=== PATIENT | male | born 1965 | race Caucasian/White ===

== ENCOUNTER 2020-03-02 11:59 | Emergency (ER) | payer BC ==
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
[2020-03-02 13:13] VITALS: BP 179/86; PULSE 89; RESP 18; TEMP 97.8
== END 2020-03-02 13:10 | disposition home or self-care (01) ==
LOC: EC 11:59
DX: S66.919A Strain of unspecified muscle, fascia and tendon at wrist and hand level, unspecified hand, initial encounter (principal); E11.9 Type 2 diabetes mellitus without complications; Z79.84 Long term (current) use of oral hypoglycemic drugs; V89.2XXA Person injured in unspecified motor-vehicle accident, traffic, initial encounter; Y92.410 Unspecified street and highway as the place of occurrence of the external cause
CPT/HCPCS: 99284

== ENCOUNTER 2021-01-29 18:28 | Emergency (ER) | payer BC, OTHER ==
[2021-01-29 18:37] VITALS: BP 157/92; PULSE 97; RESP 18; TEMP 98
--- NOTE | 2021-01-29 19:50 | ED ---
General Adult HPI - General Chief complaint: Extremity Problem,Nontraumatic Stated complaint: Leg pain Time Seen by Provider: 01/29/21 18:35 Source: patient, RN notes reviewed, old records reviewed Mode of arrival: ambulatory Limitations: no limitations - History of Present Illness Initial comments: This is a 55-year-old male who presents emergency Department complaining of a area on the back of his right thigh that is purple and tender to palpation. Patient states he noticed that the other work today and someone told him it might be a class when he come to the emergency department. Patient has no swelling of the lower leg patient has no Tenderness. Patient is not any blood thinners. Patient denies any difficulty breathing shortest breath. - Related Data Home Medications Medication Instructions Recorded Confirmed metFORMIN HCL [Glucophage] 500 mg PO BID 10/18/14 10/18/14 Previous Rx's Medication Instructions Recorded Clindamycin [Cleocin] 450 mg PO Q6H #30 capsule 10/18/14 Allergies Allergy/AdvReac Type Severity Reaction Status Date / Time No Known Allergies Allergy Verified 01/29/21 18:37 Review of Systems ROS Statement: Those systems with pertinent positive or pertinent negative responses have been documented in the HPI. ROS Other: All systems not noted in ROS Statement are negative. Past Medical History Past Medical History: Diabetes Mellitus History of Any Multi-Drug Resistant Organisms: None Reported Past Surgical History: Orthopedic Surgery Additional Past Surgical History / Comment(s): knee toe surg Past Psychological History: No Psychological Hx Reported Smoking Status: Never smoker Past Alcohol Use History: None Reported Past Drug Use History: None Reported General Exam - General Exam Comments Initial Comments: GENERAL Patient is well-developed and well-nourished. Patient is in mild distress. EYES Patient's pupils are equal and round. Extraocular motion is intact SKIN Hematoma right thigh NEURO The patient is alert and oriented 3 PYSCH Patient has normal interpersonal interactions. MUSCULOSKELETAL Patient has a small hematoma the posterior aspect of the right thigh there is no calf tenderness is no swelling of the leg. The hematoma measures about 2 cm in diameter. It is superficial. Limitations: no limitations Course Vital Signs 01/29/21 18:34 Temperature 98.0 F Pulse Rate 97 Respiratory 18 Rate Blood Pressure 157/92 O2 Sat by Pulse 97 Oximetry Disposition Clinical Impression: Hematoma of thigh Disposition: HOME SELF-CARE Condition: Good Instructions (If sedation given, give patient instructions): Hematoma (ED) Is patient prescribed a controlled substance at d/c from ED?: No Referrals: Danielle Ca III, MD [Primary Care Provider] - 1-2 days Time of Disposition: 19:50
== END 2021-01-29 20:02 | disposition home or self-care (01) ==
LOC: EC 18:28
DX: S70.11XA Contusion of right thigh, initial encounter (principal); E11.9 Type 2 diabetes mellitus without complications; Z79.84 Long term (current) use of oral hypoglycemic drugs; X58.XXXA Exposure to other specified factors, initial encounter
CPT/HCPCS: 99283

== ENCOUNTER → 2021-07-16 | Outpatient (CLI) | payer BC ==
--- NOTE | 2021-07-16 18:35 | P.STRESS ---
- Stress Test Note Stress Test Results/Findings: Exam Performed: stress test Exam Date: 07/16/21 Reason for Exam: CHEST PAIN Height: 6 ft Weight: 93.2 kg Protocol: REBECA Stage: 3 Duration of Exercise: 8:00 Resting Heart Rate: 103 Resting Blood Pressure: 154/93 Maximum Achieved Heart Rate: 169 Maximum Achieved Blood Pressure: 188/117 85% PMHR: 139 100% PMHR: 164 METS: 10.3 Technologist Comment: Stress Test Results/Findings: Baseline heart rate 130 beats a minute, Baseline blood pressure 154/93 mmHg Twelve-lead EKG showed sinus rhythm normal OR narrow QRS normal ST segments poor R-wave progression Patient exercised on a Rebeca protocol for 8 minutes achieving a peak heart rate of 169 beats a minute Peak blood pressure 188 417 beats a minute Occasional PVCs noted No symptoms noted There were no ST segment abnormalities suggestive of ischemia Impression Average exercise capacity without any evidence for ischemia Hypertension
--- NOTE | 2021-07-18 10:09 | EST ---
Stress Test Results/Findings: Exam Performed: stress test Exam Date: 07/16/21 Reason for Exam: CHEST PAIN Height: 6 ft Weight: 93.2 kg Protocol: REBECA Stage: 3 Duration of Exercise: 8:00 Resting Heart Rate: 103 Resting Blood Pressure: 154/93 Maximum Achieved Heart Rate: 169 Maximum Achieved Blood Pressure: 188/117 85% PMHR: 139 100% PMHR: 164 METS: 10.3 Technologist Comment: Stress Test Results/Findings: Baseline heart rate 130 beats a minute, Baseline blood pressure 154/93 mmHg Twelve-lead EKG showed sinus rhythm normal VA narrow QRS normal ST segments poor R-wave progression Patient exercised on a Rebeca protocol for 8 minutes achieving a peak heart rate of 169 beats a minute Peak blood pressure 188 417 beats a minute Occasional PVCs noted No symptoms noted There were no ST segment abnormalities suggestive of ischemia Impression Average exercise capacity without any evidence for ischemia Hypertension MTDD
== END | disposition home or self-care (01) ==
LOC: RADNMMAIN 08:24
PROVIDERS: ATTEND Family Medicine
DX: R07.9 Chest pain, unspecified (principal)
CPT/HCPCS: 93017

== ENCOUNTER → 2022-01-10 | Outpatient (CLI) | payer BC ==
--- NOTE | 2022-01-10 07:41 | US ---
EXAMINATION TYPE: US abdomen complete DATE OF EXAM: 01/10/2022 COMPARISON: NONE CLINICAL HISTORY: R10.11 RUQ PAIN. Patient states pain after drinking. TECHNIQUE: Multiple sonographic images of the abdomen are obtained. FINDINGS: EXAM MEASUREMENTS: Liver Length: 16.2 cm Gallbladder Wall: 0.2 cm CBD: 0.4 cm Spleen: 12.6 cm Right Kidney: 12.1 x 5.2 x 5.4 cm Left Kidney: 12.8 x 4.7 x 5.0 cm Pancreas: Echogenic in appearance. Tail obscured by bowel gas. Liver: Increased attenuation, decreased visualization of vessels suggestive of fatty infiltrate. Fo steffen fatty sparing seen adjacent to GB. Gallbladder: Mobile stone = 0.9 cm Evidence for sonographic Mancilla's sign: neg CBD: wnl Spleen: wnl Right Kidney: No hydronephrosis or masses seen Left Kidney: medial anechoic lesion at hilum - 2.1 x 1.3 cm Upper IVC: Obscured by overlying bowel gas Abd Aorta: Proximal obscured by overlying bowel gas Multiple images taken of RUQ post drinking water The intrahepatic portion of the IVC and proximal abdominal aorta are within normal limits. Common bi le duct is unremarkable. The visualized portions of the pancreas are homogenous. The spleen is unre markable. Kidneys are symmetric and free of hydronephrosis. No solid renal lesions are seen. IMPRESSION: 1. Hepatic steatosis with areas of focal fatty sparing. 2. Cholelithiasis. 3. Left renal cyst.
== END | disposition home or self-care (01) ==
LOC: RADUSWWP 06:40
PROVIDERS: ATTEND Family Medicine
DX: K76.0 Fatty (change of) liver, not elsewhere classified (principal); K80.20 Calculus of gallbladder without cholecystitis without obstruction; N28.1 Cyst of kidney, acquired
CPT/HCPCS: 76700

== ENCOUNTER 2022-09-19 09:12 | Day surgery (SDC) | payer BC ==
[2022-09-16 12:57] VITALS: BMI 27.8
[~2022-09-19 09:12] MED LIST: ACETAMINOPHEN TAB 500 MG TAB PO PRN; DEXAMETHASONE SOD PHOSPHATE 4 MG/ML 1 ML VIAL IV ONE; HEPARIN SODIUM,PORCINE/PF 5,000 UNIT/0.5 ML SYRINGE SQ PRN; HYDROmorphone 0.5 MG/0.5 ML SYRINGE IVP PRN; LACTATED RINGERS 1,000 ML IV SCH; MIDAZOLAM 2 MG/2 ML VIAL IV PRN; ONDANSETRON 4 MG/2 ML VIAL IVP ONE; SCOPOLAMINE 1 MG/72 HR PATCH TRANSDERM ONE
[2022-09-19 09:48] LABS: Glucose,Whole Blood 142 mg/dL (70-110)
--- NOTE | 2022-09-19 10:21 | P.GSHP ---
History of Present Illness H&P Date: 09/19/22 Chief Complaint: Chronic cholecystitis 57-year-old male last seen in the office February last year. Patient with complaints of intermittent right upper quadrant pain. Usually happens about twice per week. Aggravated by eating certain foods. Some nausea at times. Ultrasound shows gallstones. Past Medical History Past Medical History: Diabetes Mellitus, Hyperlipidemia, Hypertension Additional Past Medical History / Comment(s): GALL BLADDER DISORDER History of Any Multi-Drug Resistant Organisms: None Reported Past Surgical History: Orthopedic Surgery Additional Past Surgical History / Comment(s): RTknee AND LT toe surg. COLONOSCOPY Past Anesthesia/Blood Transfusion Reactions: No Reported Reaction Smoking Status: Never smoker - Past Family History Mother Family Medical History: No Reported History Medications and Allergies Home Medications Medication Instructions Recorded Confirmed Type metFORMIN HCL [Glucophage] 500 mg PO BID 10/18/14 09/16/22 History Dulaglutide [Trulicity] 4.5 mg SQ MO 09/16/22 09/16/22 History Empagliflozin [Jardiance] 25 mg PO DAILY 09/16/22 09/16/22 History Glimepiride [Amaryl] 2 mg PO AC-BRKFST 09/16/22 09/16/22 History Simvastatin 40 mg PO DAILY 09/16/22 09/16/22 History lisinopriL [Zestril] 10 mg PO DAILY 09/16/22 09/19/22 History Allergies Allergy/AdvReac Type Severity Reaction Status Date / Time No Known Allergies Allergy Verified 09/19/22 10:00 Surgical - Exam Physical exam: General: Well-developed, well-nourished HEENT: Normocephalic, sclerae nonicteric Abdomen: Nontender, nondistended Extremities: No edema Neuro: Alert and oriented Results - Labs Abnormal Lab Results - Last 24 Hours (Table) 09/19/22 Range/Units 09:47 POC Glucose (mg/dL) 142 H (70-110) mg/dL Assessment and Plan (1) Chronic cholecystitis Narrative/Plan: 57-year-old male with chronic cholecystitis. We'll proceed with laparoscopic, possible open cholecystectomy at this time. Risks of bleeding, infection, bile leak, bile duct injury, retained common bile duct stone, trocar injury, conversion to an open procedure, hernia, anesthesia related complications were reviewed. The patient understands and wishes to proceed. Current Visit: Yes Status: Acute Code(s): K81.1 - CHRONIC CHOLECYSTITIS SNOMED Code(s): 79277847
[2022-09-19] MEDS ORDERED: KETOROLAC 15 MG/ML 1 ML VIAL ONE (10:28)
[2022-09-19] MEDS ORDERED: MIDAZOLAM 2 MG/2 ML VIAL ONE (10:28)
[2022-09-19] MEDS ORDERED: LIDOCAINE 2% INJ 20 MG/ML (2 ML VIAL) ONE (10:28)
[2022-09-19] MEDS ORDERED: HYDROmorphone (PF) 1 MG/ML ONE (10:28)
[2022-09-19] MEDS ORDERED: GLYCOPYRROLATE 0.2 MG/ML 2 ML VIAL ONE (10:28)
[2022-09-19] MEDS ORDERED: SUCCINYLCHOLINE CHLORIDE 200 MG/10 ML VIAL IV ONE (10:28)
[2022-09-19] MEDS ORDERED: PROPOFOL 10 MG/ML 20 ML VIAL IV ONE (10:28)
[2022-09-19] MEDS ORDERED: fentaNYL (PF) 50 MCG/ML 2 ML AMP ONE (10:28)
[2022-09-19] MEDS ORDERED: NEOSTIGMINE 1 MG/ML 10 ML VIAL ONE (10:28)
[2022-09-19] MEDS ORDERED: PHENYLEPHRINE-0.9% NACL SYG 1,000 MCG/10 ML SYRINGE ONE (10:28)
[2022-09-19] MEDS ORDERED: ROCURONIUM 10 MG/ML (5 ML VIAL) IV ONE (10:28)
[2022-09-19] MEDS ORDERED: BUPIVACAINE (PF) 0.25% 30 ML VIAL SQ ONE ×3 (11:00→11:43)
[2022-09-19] MEDS ORDERED: LACTATED RINGERS 1,000 ML IV ONE (11:43)
[2022-09-19 11:57] VITALS: TEMP 97.1
--- NOTE | 2022-09-19 12:12 | P.OP ---
Date of Procedure: 09/19/22 Procedure(s) Performed: PREOPERATIVE DIAGNOSIS: Chronic cholecystitis POSTOPERATIVE DIAGNOSIS: Same PROCEDURE: Laparoscopic cholecystectomy SURGEON: Chester EBL: Minimal see anesthesia record ANESTHESIA: Gen. COMPLICATIONS: None OPERATIVE PROCEDURE: The patient was brought and placed on the operating room table in the supine position. The patient was placed under general anesthesia at that time. The abdomen was prepped and draped in the usual sterile fashion. A small vertical infraumbilical incision was made. The fascia was grasped with the [place] forceps. The fascia was retracted anteriorly. The Veress needle was advanced into the peritoneal cavity. The saline drop test was normal. Insufflation took place up to 15 mmHg. A 5 mm optical trocar was advanced and the peritoneal cavity. 2 additional 5 mm trochars were placed in the right upper quadrant under direct visualization. A 12 mm trocar was advanced into the epigastric incision site. The gallbladder was retracted superiorly and laterally. The peritoneum overlying the infundibulum was bluntly dissected. The patient's cystic duct was visualized. The junction between the cystic duct common and hepatic duct was identified. The critical view of safety was achieved after blunt dissection. The cystic duct was then divided after placement of 3 12 mm clips on the patient's side and one on the specimen side. The cystic artery was identified and clipped as well. A small vessel was seen along the gallbladder fossa and clipped as well. The gallbladder was then removed from the liver bed using electrocautery. The gallbladder was then removed from the epigastric trocar site with an Endo Catch bag. The gallbladder fossa was irrigated with saline. There was no evidence of any bleeding or biliary drainage seen. The fascia at the 12 millimeter site was closed using a Jim-Qing 0 Vicryl stitch. The trochars were then removed. The skin at all 4 sites was closed using a 4-0 Monocryl stitch. Skin glue was utilized on the incision sites. At the end of this procedure the sponge and needle counts were correct. DISPOSITION: Stable to the recovery room
[2022-09-19] MEDS ORDERED: ACETAMINOPHEN TAB 325 MG TAB PO SCH (12:15)
[2022-09-19 13:23] VITALS: RESP 18
[2022-09-19 13:51] VITALS: BP 116/71; PULSE 93
[2022-09-19] MEDS ORDERED: IBUPROFEN 600 MG TAB PO SCH (15:15)
== END 2022-09-19 14:48 | disposition home or self-care (01) ==
LOC: OR 09:12
PROVIDERS: ATTEND Surgery
DX: K81.1 Chronic cholecystitis (principal); E11.9 Type 2 diabetes mellitus without complications; E78.5 Hyperlipidemia, unspecified; I10 Essential (primary) hypertension; Z98.890 Other specified postprocedural states; Z79.84 Long term (current) use of oral hypoglycemic drugs; Z79.899 Other long term (current) drug therapy
CPT/HCPCS: 47562; J2250; J0330; J1100; J2710; J0690; J2405; J3010; J1170; J1885; J2370; J2704; J1644; J2001; 88304

== ENCOUNTER 2023-08-31 10:17 | Day surgery (SDC) | payer BC ==
[2023-08-28 12:44] VITALS: BMI 27.5
[2023-08-31] MEDS: LACTATED RINGERS 1,000 ML IV SCH (11:01)
[2023-08-31 11:07] LABS: Glucose,Whole Blood 156 mg/dL (70-110)
[2023-08-31 11:34] VITALS: TEMP 97.7
[2023-08-31] MEDS ORDERED: PROPOFOL 10 MG/ML 20 ML VIAL IV ONE (12:02)
--- NOTE | 2023-08-31 12:08 | P.GSHP ---
History of Present Illness H&P Date: 08/31/23 Chief Complaint: screening colonoscopy 58-year-old male presents today for screening colonoscopy.patient denies a significant ccomplaints. Past Medical History Past Medical History: Diabetes Mellitus, Hyperlipidemia, Hypertension Additional Past Medical History / Comment(s): GALL BLADDER DISORDER History of Any Multi-Drug Resistant Organisms: None Reported Past Surgical History: Cholecystectomy, Orthopedic Surgery Additional Past Surgical History / Comment(s): RT knee AND LT toe surg. COLONOSCOPY Past Anesthesia/Blood Transfusion Reactions: No Reported Reaction Smoking Status: Never smoker - Past Family History Mother Family Medical History: No Reported History Medications and Allergies Home Medications Medication Instructions Recorded Confirmed Type metFORMIN HCL [Glucophage] 500 mg PO BID 10/18/14 08/28/23 History Empagliflozin [Jardiance] 25 mg PO DAILY 09/16/22 08/28/23 History Glimepiride [Amaryl] 2 mg PO AC-BRKFST 09/16/22 08/28/23 History Simvastatin 40 mg PO DAILY 09/16/22 08/28/23 History lisinopriL [Zestril] 10 mg PO DAILY 09/16/22 08/28/23 History Tirzepatide [Mounjaro] 2.5 mg SQ MO 08/28/23 08/28/23 History Allergies Allergy/AdvReac Type Severity Reaction Status Date / Time No Known Allergies Allergy Verified 08/31/23 10:56 Surgical - Exam Vital Signs Temp Pulse Resp BP Pulse Ox 97.7 F 98 16 164/81 98 08/31/23 10:56 08/31/23 10:56 08/31/23 10:56 08/31/23 10:56 08/31/23 10:56 - General well developed, well nourished, no distress - Eyes PERRL - ENT normal pinna - Neck no masses - Respiratory normal expansion - Cardiovascular Rhythm: regular - Abdomen Abdomen: soft, non tender Results - Labs Abnormal Lab Results - Last 24 Hours (Table) 08/31/23 Range/Units 11:06 POC Glucose (mg/dL) 156 H (70-110) mg/dL Assessment and Plan Assessment: we'll perform screening colonoscopy
--- NOTE | 2023-08-31 12:19 | P.OP ---
Date of Procedure: 08/31/23 Preoperative Diagnosis: screening colonoscopy Postoperative Diagnosis: internal hemorrhoids Mild diverticulosis Procedure(s) Performed: colonoscopy Anesthesia: MAC Surgeon: Valerio Quinonez Pathology: none sent Condition: stable Disposition: PACU Description of Procedure: the patient's placed on the endoscopy table in the lateral position. He received IV sedation. Digital rectal exam was performed. This revealed a few internal hemorrhoids. Flexible colonoscope was then placed patient anus passed throughout the entire colon. The ileocecal valve was visualized. The cecum, ascending and transverse colon appeared normal. In the descending and; there is mild diverticular changes. The scope was then brought back the rectum and this appeared normal. Scope withdrawn for patient.
[2023-08-31 13:05] VITALS: BP 93/60; PULSE 87; RESP 16
== END 2023-08-31 12:50 | disposition home or self-care (01) ==
LOC: ORWHC2ENDO 10:17
PROVIDERS: ATTEND Surgery
DX: Z12.11 Encounter for screening for malignant neoplasm of colon (principal); K57.30 Diverticulosis of large intestine without perforation or abscess without bleeding; K64.8 Other hemorrhoids; I10 Essential (primary) hypertension; E78.5 Hyperlipidemia, unspecified; E11.9 Type 2 diabetes mellitus without complications; Z90.49 Acquired absence of other specified parts of digestive tract; Z98.890 Other specified postprocedural states; Z79.84 Long term (current) use of oral hypoglycemic drugs; Z79.899 Other long term (current) drug therapy
CPT/HCPCS: 45378; J2704

== ENCOUNTER → 2023-09-17 | Outpatient (CLI) | payer BC ==
[2023-09-17 09:21] LABS: African American GFR (CKD) >90 (>60 ml/min/1.73 sqM); Blood Urea Nitrogen 17 mg/dL (9-20); Non-African American GFR(CKD) >90 (>60 ml/min/1.73 sqM)
--- NOTE | 2023-09-17 12:56 | CT ---
EXAMINATION TYPE: CT soft tissue neck w con DATE OF EXAM: 09/17/2023 COMPARISON: None HISTORY: 58-year-old male Left sided swelling/lump. TECHNIQUE: Contiguous axial scanning of the soft tissues of the neck performed with IV Contrast, luis manuel ent injected with 100ml mL of Isovue 300. Coronal and sagittal reconstructions performed. CT DLP: 563 mGycm Automated exposure control for dose reduction was used. FINDINGS: The thyroid gland is satisfactory. The submandibular glands slightly atrophic. Parotid gland satisfactory. Visualized intracranial structures, orbits and globes, and mastoid air cells appear clear. Leftward nasal septal deviation. Scattered moderate mucosal thickening ethmoid air cells. Mild mucosa l thickening floors of the maxillary sinuses. Nasopharynx is clear. Mild to moderate hypertrophy of the bilateral palatine tonsils and mild hypertrophy of the bilateral lingual tonsils. Oropharynx otherwise clear. Epiglottis and prevertebral soft tissues are satisfactory. Glottic and subglottic airway as well as the tracheal column and visualized upper lungs are clear. Some prominent submandibular space lymph nodes measuring up to 1.3 cm on both sides, slightly more nu merous on the left. A prominent left upper to mid neck lymph node along the posterior triangle measur ing 1 cm. The palpable markers located overlying the left sternocleidomastoid muscle. No suspicious underlying neck mass is identified here. Bones: Mild to moderate degenerative disc disease C5-C7 levels. IMPRESSION: 1. PALPABLE MARKER PLACED ALONG THE LATERAL ASPECT OF THE UPPER TO MID NECK. NO SUSPICIOUS UNDERLYING NECK MASS IDENTIFIED. 2. BORDERLINE TO MILDLY ENLARGED LYMPH NODES IN THE BILATERAL SUBMANDIBULAR SPACE MEASURING UP TO 1.3 CM, PROBABLY REACTIVE/POST INFLAMMATORY. ADDITIONAL SOLITARY PROMINENT 1 CM LYMPH NODE ALONG THE LEF T POSTERIOR TRIANGLE OF THE NECK. CLINICAL FOLLOW-UP RECOMMENDED. ALSO, 3-[address] MON[address] FOLLOW-UP CT TO ENS URE STABILITY/RESOLUTION. 3. SCATTERED MODERATE CHRONIC ETHMOID SINUS DISEASE.
== END | disposition home or self-care (01) ==
LOC: RADCTMAIN 07:36
PROVIDERS: ATTEND Family Medicine
DX: J34.89 Other specified disorders of nose and nasal sinuses (principal); R22.1 Localized swelling, mass and lump, neck
CPT/HCPCS: 82565; 84520; 70491; 36415; Q9967

== ENCOUNTER 2023-10-31 21:47 | Observation (INO) | payer BC ==
--- NOTE | 2023-10-31 22:06 | ED ---
Weakness HPI - General Chief complaint: Weakness Stated complaint: Back and Left Shoulder Pain, Fatigue Time Seen by Provider: 10/31/23 21:59 Source: patient, RN notes reviewed Mode of arrival: ambulatory - History of Present Illness Initial comments: This is a 58-year-old male presents emergency department accompanied by his fiance chief complaint of left back pain and generalized fatigue over the past few weeks. Patient states that he has been experiencing left superior back pain with radiation to his left shoulder for the past few weeks. Patient denies any trauma or known injury to the back. Additionally states that he has been sleeping more frequently. He states that he has been in symptoms of dizziness described as room spinning sensation when he stands up too quickly from sitting down. Currently, patient is denying symptoms of chest pain, chest pressure, dizz iness, lightheadedness, dyspnea. Denies personal history of NH, CVA, DVT/PE. - Related Data Home Medications Medication Instructions Recorded Confirmed metFORMIN HCL [Glucophage] 500 mg PO BID 10/18/14 08/28/23 Empagliflozin [Jardiance] 25 mg PO DAILY 09/16/22 08/28/23 Glimepiride [Amaryl] 2 mg PO AC-BRKFST 09/16/22 08/28/23 Simvastatin 40 mg PO DAILY 09/16/22 08/28/23 lisinopriL [Zestril] 10 mg PO DAILY 09/16/22 08/28/23 Tirzepatide [Mounjaro] 2.5 mg SQ MO 08/28/23 08/28/23 Allergies Allergy/AdvReac Type Severity Reaction Status Date / Time No Known Allergies Allergy Verified 10/31/23 21:57 Review of Systems ROS Statement: Those systems with pertinent positive or pertinent negative responses have been documented in the HPI. ROS Other: All systems not noted in ROS Statement are negative. Past Medical History Past Medical History: Diabetes Mellitus, Hyperlipidemia, Hypertension Additional Past Medical History / Comment(s): GALL BLADDER DISORDER History of Any Multi-Drug Resistant Organisms: None Reported Past Surgical History: Cholecystectomy, Orthopedic Surgery Additional Past Surgical History / Comment(s): RT knee AND LT toe surg. COLONOSCOPY Past Anesthesia/Blood Transfusion Reactions: No Reported Reaction Past Psychological History: No Psychological Hx Reported Smoking Status: Never smoker Past Alcohol Use History: Rare Past Drug Use History: None Reported - Past Family History Mother Family Medical History: No Reported History General Exam General appearance: alert, in no apparent distress Head exam: Present: atraumatic, normocephalic, normal inspection Eye exam: Present: normal appearance, PERRL, EOMI. Absent: scleral icterus, conjunctival injection, periorbital swelling ENT exam: Present: normal exam, mucous membranes moist Neck exam: Present: normal inspection. Absent: tenderness, meningismus, lymphadenopathy Respiratory exam: Present: normal lung sounds bilaterally. Absent: respiratory distress, wheezes, rales, rhonchi, stridor Cardiovascular Exam: Present: regular rate, normal rhythm, normal heart sounds. Absent: systolic murmur, diastolic murmur, rubs, gallop, clicks GI/Abdominal exam: Present: soft, normal bowel sounds. Absent: distended, tenderness, guarding, rebound, rigid Extremities exam: Present: normal inspection, full ROM, normal capillary refill. Absent: tenderness, pedal edema, joint swelling, calf tenderness Back exam: Present: normal inspection, tenderness (posterior superior back, no deformity noted on exam) Neurological exam: Present: alert, oriented X3, CN II-XII intact Skin exam: Present: warm, dry Course Vital Signs 10/31/23 10/31/23 10/31/23 21:53 22:10 22:49 Temperature 97.6 F Pulse Rate 109 H Pulse Rate [ 98 Designer ] Pulse Rate [ 98 Left Sitting Pulse Oximetery ] Pulse Rate [ 109 H Left Standing Pulse Oximetery ] Pulse Rate [ 98 Left Supine Pulse Oximetery ] Respiratory 18 Rate Blood Pressure 95/64 Blood Pressure 101/68 [Right Arm Sitting] Blood Pressure 91/60 [Right Arm Standing] Blood Pressure 103/62 [Right Arm Supine] O2 Sat by Pulse 99 Oximetry 11/01/23 11/01/23 00:00 00:07 Temperature 97.6 F Pulse Rate 100 100 Pulse Rate [ Designer ] Pulse Rate [ Left Sitting Pulse Oximetery ] Pulse Rate [ Left Standing Pulse Oximetery ] Pulse Rate [ Left Supine Pulse Oximetery ] Respiratory 17 16 Rate Blood Pressure 104/65 95/62 Blood Pressure [Right Arm Sitting] Blood Pressure [Right Arm Standing] Blood Pressure [Right Arm Supine] O2 Sat by Pulse 94 L 95 Oximetry Medical Decision Making - Medical Decision Making Was pt. sent in by a medical professional or institution (Dr., PA, EXTRACTION SUPERVISOR, urgent care, hospital, or detention...) When possible be specific @ -No Did you speak to anyone other than the patient for history (EMS, parent, family, police, friend...)? What history was obtained from this source @ -No Did you review nursing and triage notes (agree or disagree)? Why? @ -I reviewed and agree with nursing and triage notes Were old charts reviewed (outside hosp., previous admission, EMS record, old EKG, old radiological studies, urgent care reports/EKG's, detention records)? Report findings @ -No old charts were reviewed Differential Diagnosis (chest pain, altered mental status, abdominal pain women, abdominal pain men, vaginal bleeding, weakness, fever, dyspnea, syncope, headache, dizziness, GI bleed, back pain, seizure, CVA, palpatations, mental hea lth, musculoskeletal)? @ -Differential Weakness: Hypoglycemia, shock, sepsis, hyponatremia, anemia, infection, NH, ETOH, adverse medicine reaction, overdose, stroke, this is not meant to be an all-inclusive list. EKG interpreted by me (3pts min.). @ -Completed at 2209, sinus rhythm, ventricular rate 96, IN interval 159, QTc 379. No acute signs of ischemia. X-rays interpreted by me (1pt min.). @ -no acute cardiopulmonary process noted. CT interpreted by me (1pt min.). @ -None done U/S interpreted by me (1pt. min.). @ -None done What testing was considered but not performed or refused? (CT, X-rays, U/S, labs)? Why? @ -None What meds were considered but not given or refused? Why? @ -None Did you discuss the management of the patient with other professionals (professionals i.e. , CHARITY, EXTRACTION SUPERVISOR, lab, RT, psych nurse, social work associate, jawbone breaker, teacher, investigation officer, manager rn case)? Give summary @ -Patient follows with Dr. Palmer, therefore I spoke with [facility] provider, Sheet to admission to observation for the patient with findings consistent of an acute kidney injury and hypotension. Patient is accepted for admission. Was smoking cessation discussed for >3mins.? @ -No Was critical care preformed (if so, how long)? @ -No Were there social determinants of health that impacted care today? How? (Homelessness, low income, unemployed, alcoholism, drug addiction, transportation, low edu. Level, literacy, decrease access to med. care, fdc, rehab)? @ -No Was there de-escalation of care discussed even if they declined (Discuss DNR or withdrawal of care, Hospice)? DNR status @ -No What co-morbidities impacted this encounter? (DM, HTN, Smoking, COPD, CAD, Cancer, CVA, ARF, Chemo, Hep., AIDS, mental health diagnosis, sleep apnea, morbid obesity)? @ -None Was patient admitted / discharged? Hospital course, mention meds given and route, prescriptions, significant lab abnormalities, going to OR and other pertinent info. @ -58-year-old male with left-sided superior posterior back pain and generalized weakness. Back pain is reproducible on palpation, non-radiating and no obvious deformities on examination, ROM intact of the LUE. on discussion with patient, he is denying symptoms of chest pain, chest pressure, lightheadedness, dizziness. Patient will be evaluated via broad laboratory workup in addition to EKG and chest x-ray. Patient is mildly hypotensive on presentation, therefore is given a 500 mL fluid bolus. Cxr unremarkable, labs consistent with mild MORRIS troponin nonelevated, coagulation profile within normal limits, CBC unremarkable. With a acidosis of 16 CO2, BUN 32, creatinine 1.67 and GFR 51. As compared to previous laboratory studies completed in the middle of September patient's GFR was well over 99 and BUN and creatinine were both within normal limits. Spoke with on-call [facility] internal medicine provider, Dr. Pelayo, was agreeable with observation admission and continuation of fluids due to acute kidney injury and hypotension. Case discussed with Dr. Tovar Undiagnosed new problem with uncertain prognosis? @ -No Drug Therapy requiring intensive monitoring for toxicity (Heparin, Nitro, Insulin, Cardizem)? @ -No Were any procedures done? @ -No Diagnosis/symptom? @ -Acute kidney injury, hypotension, hyperglycemia Acute, or Chronic, or Acute on Chronic? @ -acute Uncomplicated (without systemic symptoms) or Complicated (systemic symptoms)? @ -uncomplicated Side effects of treatment? @ -No Exacerbation, Progression, or Severe Exacerbation? @ -No Poses a threat to life or bodily function? How? (Chest pain, USA, NH, pneumonia, PE, COPD, DKA, ARF, appy, cholecystitis, CVA, Diverticulitis, Homicidal, Suicidal, threat to staff... and all critical care pts) @ -No - Lab Data Result diagrams: 11/01/23 05:19 11/01/23 05:19 Lab Results 10/31/23 10/31/23 10/31/23 Range/Units 22:13 22:13 22:13 WBC 13.3 H (3.8-10.6) k/uL RBC 5.66 (4.30-5.90) m/uL Hgb 17.0 (13.0-17.5) gm/dL Hct 52.3 (39.0-53.0) % MCV 92.4 (80.0-100.0) fL MCH 30.0 (25.0-35.0) pg MCHC 32.4 (31.0-37.0) g/dL RDW 12.4 (11.5-15.5) % Plt Count 178 (150-450) k/uL MPV 7.2 Neutrophils % 87 % Lymphocytes % 8 % Monocytes % 4 % Eosinophils % 0 % Basophils % 0 % Neutrophils # 11.5 H (1.3-7.7) k/uL Lymphocytes # 1.0 (1.0-4.8) k/uL Monocytes # 0.6 (0-1.0) k/uL Eosinophils # 0.0 (0-0.7) k/uL Basophils # 0.1 (0-0.2) k/uL PT 11.5 (10.0-12.5) sec INR 1.1 (<1.2) APTT 22.0 (22.0-30.0) sec Sodium 136 L (137-145) mmol/L Potassium 5.0 (3.5-5.1) mmol/L Chloride 106 (98-107) mmol/L Carbon Dioxide 16 L (22-30) mmol/L Anion Gap 14 mmol/L BUN 32 H (9-20) mg/dL Creatinine 1.67 H (0.66-1.25) mg/dL Est GFR (CKD-EPI)AfAm 51 (>60 ml/min/1.73 sqM) Est GFR (CKD-EPI)NonAf 44 (>60 ml/min/1.73 sqM) Glucose 266 H (74-99) mg/dL Calcium 9.6 (8.4-10.2) mg/dL Phosphorus 4.9 H (2.5-4.5) mg/dL Magnesium 1.8 (1.6-2.3) mg/dL Total Bilirubin 1.2 (0.2-1.3) mg/dL AST 33 (17-59) U/L ALT 55 H (4-49) U/L Alkaline Phosphatase 66 (38-126) U/L Troponin I (0.000-0.034) ng/mL Total Protein 7.7 (6.3-8.2) g/dL Albumin 5.0 (3.5-5.0) g/dL TSH 1.120 (0.465-4.680) mIU/L 10/31/23 Range/Units 22:13 WBC (3.8-10.6) k/uL RBC (4.30-5.90) m/uL Hgb (13.0-17.5) gm/dL Hct (39.0-53.0) % MCV (80.0-100.0) fL MCH (25.0-35.0) pg MCHC (31.0-37.0) g/dL RDW (11.5-15.5) % Plt Count (150-450) k/uL MPV Neutrophils % % Lymphocytes % % Monocytes % % Eosinophils % % Basophils % % Neutrophils # (1.3-7.7) k/uL Lymphocytes # (1.0-4.8) k/uL Monocytes # (0-1.0) k/uL Eosinophils # (0-0.7) k/uL Basophils # (0-0.2) k/uL PT (10.0-12.5) sec INR (<1.2) APTT (22.0-30.0) sec Sodium (137-145) mmol/L Potassium (3.5-5.1) mmol/L Chloride (98-107) mmol/L Carbon Dioxide (22-30) mmol/L Anion Gap mmol/L BUN (9-20) mg/dL Creatinine (0.66-1.25) mg/dL Est GFR (CKD-EPI)AfAm (>60 ml/min/1.73 sqM) Est GFR (CKD-EPI)NonAf (>60 ml/min/1.73 sqM) Glucose (74-99) mg/dL Calcium (8.4-10.2) mg/dL Phosphorus (2.5-4.5) mg/dL Magnesium (1.6-2.3) mg/dL Total Bilirubin (0.2-1.3) mg/dL AST (17-59) U/L ALT (4-49) U/L Alkaline Phosphatase (38-126) U/L Troponin I <0.012 (0.000-0.034) ng/mL Total Protein (6.3-8.2) g/dL Albumin (3.5-5.0) g/dL TSH (0.465-4.680) mIU/L Disposition Clinical Impression: Acute kidney injury, Hypotension Disposition: ADMITTED IP TO THIS [facility] Condition: Good Is patient prescribed a controlled substance at d/c from ED?: No Decision to Admit Reason: Admit from EC Decision Date: 10/31/23 Decision Time: 23:14
[2023-10-31] MEDS: SODIUM CHLORIDE 0.9% 500 ML 500 ML IV STA (22:23)
--- NOTE | 2023-10-31 22:36 | XR ---
EXAMINATION TYPE: XR chest 2V DATE OF EXAM: 10/31/2023 COMPARISON: NONE HISTORY: Weakness TECHNIQUE: Frontal and lateral views of the chest are obtained. FINDINGS: Overlying EKG leads are present. There is no focal air space opacity, pleural effusion, or pneumothorax seen. The cardiac silhouette size is within normal limits. The osseous structures ar e intact. Cholecystectomy clips are noted. IMPRESSION: No acute cardiopulmonary process.
[2023-10-31 22:41] LABS: Basophils # (A) 0.1 k/uL (0-0.2); Basophils % (A) 0 %; Eosinophils % (A) 0 %; HCT 52.3 % (39.0-53.0); Lymphocytes % (A) 8 %; MCHC 32.4 g/dL (31.0-37.0); MCV 92.4 fL (80.0-100.0); Mean Platelet Volume 7.2; Monocytes # (A) 0.6 k/uL (0-1.0); Monocytes % (A) 4 %; Neutrophils # (A) 11.5 k/uL (1.3-7.7); Neutrophils % (A) 87 %; Platelet Count 178 k/uL (150-450); RBC 5.66 m/uL (4.30-5.90); RDW 12.4 % (11.5-15.5); WBC 13.3 k/uL (3.8-10.6)
[2023-10-31 22:50] LABS: ALT 55 U/L (4-49); AST 33 U/L (17-59); African American GFR (CKD) 51 (>60 ml/min/1.73 sqM); Alkaline Phosphatase 66 U/L (38-126); Anion Gap 14 mmol/L; Blood Urea Nitrogen 32 mg/dL (9-20); Calcium 9.6 mg/dL (8.4-10.2); Carbon Dioxide 16 mmol/L (22-30); Chloride 106 mmol/L (98-107); Glucose 266 mg/dL (74-99); Magnesium 1.8 mg/dL (1.6-2.3); Non-African American GFR(CKD) 44 (>60 ml/min/1.73 sqM); Phosphorus 4.9 mg/dL (2.5-4.5); Sodium 136 mmol/L (137-145); Total Bilirubin 1.2 mg/dL (0.2-1.3); Total Protein 7.7 g/dL (6.3-8.2)
[2023-10-31 22:53] LABS: INR 1.1 (<1.2); Prothrombin Time 11.5 sec (10.0-12.5)
[2023-10-31] MEDS: SODIUM CHLORIDE 0.9% 1,000 ML IV STA (23:07)
[2023-10-31] MEDS ORDERED: NALOXONE 0.4 MG/ML 1 ML VIAL IV PRN (23:14)
[2023-10-31] MEDS ORDERED: ACETAMINOPHEN TAB 325 MG TAB PO PRN (23:14)
[2023-11-01 05:56] LABS: Basophils % (A) 1 %; Eosinophils # (A) 0.1 k/uL (0-0.7); Eosinophils % (A) 1 %; HCT 44.5 % (39.0-53.0); HGB 14.5 gm/dL (13.0-17.5); Lymphocytes # (A) 2.3 k/uL (1.0-4.8); Lymphocytes % (A) 27 %; MCH 29.6 pg (25.0-35.0); MCHC 32.6 g/dL (31.0-37.0); MCV 90.9 fL (80.0-100.0); Mean Platelet Volume 7.2; Monocytes # (A) 0.6 k/uL (0-1.0); Monocytes % (A) 7 %; Neutrophils # (A) 5.4 k/uL (1.3-7.7); Neutrophils % (A) 63 %; Platelet Count 175 k/uL (150-450); RDW 12.4 % (11.5-15.5); WBC 8.7 k/uL (3.8-10.6)
[2023-11-01 06:07] LABS: ALT 42 U/L (4-49); AST 23 U/L (17-59); African American GFR (CKD) >90 (>60 ml/min/1.73 sqM); Albumin 3.9 g/dL (3.5-5.0); Alkaline Phosphatase 49 U/L (38-126); Anion Gap 9 mmol/L; Blood Urea Nitrogen 28 mg/dL (9-20); Calcium 8.8 mg/dL (8.4-10.2); Carbon Dioxide 19 mmol/L (22-30); Chloride 110 mmol/L (98-107); Glucose 88 mg/dL (74-99); Non-African American GFR(CKD) 83 (>60 ml/min/1.73 sqM); Potassium 3.6 mmol/L (3.5-5.1); Sodium 138 mmol/L (137-145); Total Bilirubin 0.8 mg/dL (0.2-1.3); Total Protein 6.1 g/dL (6.3-8.2)
[2023-11-01 06:42] LABS: Glucose,Whole Blood 86 mg/dL (70-110)
[2023-11-01 07:35] VITALS: RESP 16
[2023-11-01] MEDS ORDERED: DEXTROSE 50% SYRINGE 50 ML IVP PRN ×2 (11:37)
[2023-11-01 12:21] LABS: Glucose,Whole Blood 137 mg/dL (70-110)
[2023-11-01] MEDS: INSULIN ASPART (NovoLOG) 100 UNIT/ML VIAL SQ SCH (12:30)
--- NOTE | 2023-11-01 12:42 | P.CRDCN ---
History of Present Illness Consult date: 11/01/23 History of present illness: This is a 58-year-old male patient with no previous cardiac history. He does have a history of hypertension, hyperlipidemia, diabetes mellitus type 2. We have been asked to evaluate the patient for chest pain, shoulder and back pain. Patient gives history that he did not eat anything and did not drink very much fluid yesterday and when he was bending over and moving to a standing position he was feeling a little dizzy and his girlfriend made him come into the hospital. He also complains of pain in the left shoulder blade. No shortness of breath, no palpitations, no syncope episodes. No previous episodes of chest pain. He denies any tobacco use, uses alcohol occasionally. His dad had an NV in his 70s. Blood pressure 114/70, heart rate 88, pulse ox 95% on room air. Orthostatic vital signs negative. EKG: Sinus rhythm with no acute ST-T wave changes Chest x-ray: No acute findings Laboratory studies: WBC 8.7, hemoglobin 14.5. Sodium 138, potassium 3.6, CO2 19, BUN 28 creatinine 0.99 and initially creatinine was 1.67 with BUN of 32. Troponin negative x 1. Home cardiac medications: Jardiance 25 mg daily, glimepiride 2 mg with breakfast, lisinopril 10 mg daily, simvastatin 40 mg daily, Mounjaro 10 mg weekly Exercise stress test performed 07/2021 revealed average exercise capacity without evidence of ischemia. Hypertension. Review Of Systems: At the time of my exam: CONSTITUTIONAL: Denies fever or chills. HEENT: Denies blurred vision, vision changes, or eye pain. Denies hemoptysis CARDIOVASCULAR: Denies chest pain. Denies orthopnea. Denies PND. Denies palpitations RESPIRATORY: Denies shortness of breath. GASTROINTESTINAL: Denies abdominal pain. Denies nausea or vomiting. HEMATOLOGIC: Denies bleeding disorders. GENITOURINARY: Denies any blood in urine. SKIN: Denies puritis. Denies rash. Physical examination: Gen: This is a 58-year-old male in no acute distress VS: reviewed HEENT: Head is atraumatic, normocephalic. Pupils equal, round. Sclerae is anicteric. NECK: Supple. No JVD. LUNGS: Clear to auscultation. No wheezes or rhonchi. No intercostal retractions. HEART: Regular rate and rhythm. No murmur. BACK: Point tenderness on the left scapula ABDOMEN: Soft No tenderness. EXTREMITIES: No pedal edema. No calf tenderness. NEUROLOGICAL: Patient is awake, alert and oriented x3. Assessment: Left scapula pain, no chest pain Dizziness secondary to Dehydration Acute kidney injury, resolved Hypertension Hyperlipidemia Diabetes Plan: Resume patient's home cardiac medications Repeat 1 troponin If repeat troponin is negative, patient is cleared for discharge from cardiology. Thank you kindly for this consultation. Nurse practitioner note has been reviewed, I agree with documented findings and plan of care. Patient was seen and examined. Past Medical History Past Medical History: Diabetes Mellitus, Hyperlipidemia, Hypertension Additional Past Medical History / Comment(s): loose stool History of Any Multi-Drug Resistant Organisms: None Reported Past Surgical History: Cholecystectomy, Orthopedic Surgery Additional Past Surgical History / Comment(s): RT knee AND LT baby toe surg. COLONOSCOPY Past Anesthesia/Blood Transfusion Reactions: No Reported Reaction Past Psychological History: No Psychological Hx Reported Smoking Status: Never smoker Past Alcohol Use History: Rare Past Drug Use History: None Reported - Past Family History Mother Family Medical History: No Reported History Medications and Allergies Home Medications Medication Instructions Recorded Confirmed Type Empagliflozin [Jardiance] 25 mg PO DAILY 09/16/22 11/01/23 History Glimepiride [Amaryl] 2 mg PO AC-BRKFST 09/16/22 11/01/23 History Simvastatin 40 mg PO DAILY 09/16/22 11/01/23 History lisinopriL [Zestril] 10 mg PO DAILY 09/16/22 11/01/23 History Tirzepatide [Mounjaro] 10 mg SQ MO 11/01/23 11/01/23 History Allergies Allergy/AdvReac Type Severity Reaction Status Date / Time No Known Allergies Allergy Verified 11/01/23 12:05 Physical Exam Vitals: Vital Signs Temp Pulse Pulse Pulse Pulse Pulse Pulse 11/01/23 06:40 97.7 F 88 11/01/23 00:22 97.7 F 98 11/01/23 00:07 97.6 F 100 11/01/23 00:00 100 10/31/23 22:49 98 109 H 98 10/31/23 22:10 98 10/31/23 21:53 97.6 F 109 H Resp BP BP BP BP BP Pulse Ox 11/01/23 06:40 16 114/70 95 11/01/23 00:22 22 148/76 98 11/01/23 00:07 16 95/62 95 11/01/23 00:00 17 104/65 94 L 10/31/23 22:49 101/68 91/60 103/62 10/31/23 22:10 10/31/23 21:53 18 95/64 99 Intake and Output 10/31/23 11/01/23 11/01/23 22:59 06:59 14:59 Intake Total 590 Balance 590 Intake: Oral 590 Other: Voiding Method Toilet # Voids 2 Weight 90.718 kg 90.718 kg Results 11/01/23 05:19 11/01/23 05:19 Cardiac Enzymes 10/31/23 10/31/23 11/01/23 Range/Units 22:13 22:13 05:19 AST 33 23 (17-59) U/L Troponin I <0.012 (0.000-0.034) ng/mL Coagulation 10/31/23 Range/Units 22:13 PT 11.5 (10.0-12.5) sec APTT 22.0 (22.0-30.0) sec CBC 10/31/23 11/01/23 Range/Units 22:13 05:19 WBC 13.3 H 8.7 (3.8-10.6) k/uL RBC 5.66 4.90 (4.30-5.90) m/uL Hgb 17.0 14.5 (13.0-17.5) gm/dL Hct 52.3 44.5 (39.0-53.0) % Plt Count 178 175 (150-450) k/uL Comprehensive Metabolic Panel 10/31/23 11/01/23 Range/Units 22:13 05:19 Sodium 136 L 138 (137-145) mmol/L Potassium 5.0 3.6 (3.5-5.1) mmol/L Chloride 106 110 H (98-107) mmol/L Carbon Dioxide 16 L 19 L (22-30) mmol/L BUN 32 H 28 H (9-20) mg/dL Creatinine 1.67 H 0.99 (0.66-1.25) mg/dL Glucose 266 H 88 (74-99) mg/dL Calcium 9.6 8.8 (8.4-10.2) mg/dL AST 33 23 (17-59) U/L ALT 55 H 42 (4-49) U/L Alkaline Phosphatase 66 49 (38-126) U/L Total Protein 7.7 6.1 L (6.3-8.2) g/dL Albumin 5.0 3.9 (3.5-5.0) g/dL Current Medications Generic Name Dose Route Start Last Admin Trade Name Freq PRN Reason Stop Dose Admin Acetaminophen 650 mg 10/31/23 23:14 Acetaminophen Tab 325 Mg Tab PO Q6HR PRN Mild Pain or Fever > 100.5 Naloxone HCl 0.2 mg 10/31/23 23:14 Naloxone 0.4 Mg/Ml 1 Ml Vial IV Q2M PRN Opioid Reversal Intake and Output 10/31/23 11/01/23 11/01/23 22:59 06:59 14:59 Intake Total 590 Balance 590 Intake: Oral 590 Other: Voiding Method Toilet # Voids 2 Weight 90.718 kg 90.718 kg 11/01/23 05:19 11/01/23 05:19
[2023-11-01 14:25] VITALS: BP 127/74; PULSE 89; TEMP 98.7
--- NOTE | 2023-11-02 07:07 | P.HPIM ---
History of Present Illness This is a pleasant 58 years old male with past medical history of hypertension, hyperlipidemia and diabetes mellitus. Presents because he was not feeling well and he was feeling pain in his shoulder and his back and lasted for about 1 day. Patient states that he has this pain for a while but got more severe the last 2 days about 4-5/10 in severity and increased by certain movement felt like sharp with movement but dull otherwise. His fiancee wanted him to come to the hospital. Patient also was not eating well or drinking well because he was busy the whole day Patient denies smoking or illicit drugs, he drinks alcohol occasionally No other specific urinary symptoms no diarrhea or vomiting or abdominal pain no headache dizziness or weakness or numbness Patient is afebrile His CBC, INR and LFT are unremarkable But his creatinine was 1.6 on admission came down to 0.9 which is within the reference range TSH is normal EKG showing sinus rhythm at [address]-T changes in V1 to V2 Chest x-ray: No acute cardiopulmonary process Patient received IV fluids in the emergency room Review of Systems Review of systems CONSTITUTIONAL: No fever, no malaise, no fatigue. HEENT: No recent visual problems or hearing problems. Denied any sore throat. CARDIOVASCULAR: No orthopnea, PND, no palpitations, no syncope. PULMONARY: No shortness of breath, no cough, no hemoptysis. GASTROINTESTINAL: No diarrhea, no nausea, no vomiting, no abdominal pain. Normoactive bowel sounds. NEUROLOGICAL: No headaches, no weakness, no numbness. HEMATOLOGICAL: Denies any bleeding or petechiae. GENITOURINARY: Denies any burning micturition, frequency, or urgency. MUSCULOSKELETAL/RHEUMATOLOGICAL: Denies any joint pain, swelling, or any muscle pain. ENDOCRINE: Denies any polyuria or polydipsia. Past Medical History Past Medical History: Diabetes Mellitus, Hyperlipidemia, Hypertension Additional Past Medical History / Comment(s): loose stool History of Any Multi-Drug Resistant Organisms: None Reported Past Surgical History: Cholecystectomy, Orthopedic Surgery Additional Past Surgical History / Comment(s): RT knee AND LT baby toe surg. COLONOSCOPY Past Anesthesia/Blood Transfusion Reactions: No Reported Reaction Past Psychological History: No Psychological Hx Reported Smoking Status: Never smoker Past Alcohol Use History: Rare Past Drug Use History: None Reported - Past Family History Mother Family Medical History: No Reported History Medications and Allergies Home Medications Medication Instructions Recorded Confirmed Type Empagliflozin [Jardiance] 25 mg PO DAILY 09/16/22 11/01/23 History Glimepiride [Amaryl] 2 mg PO AC-BRKFST 09/16/22 11/01/23 History Simvastatin 40 mg PO DAILY 09/16/22 11/01/23 History Tirzepatide [Mounjaro] 10 mg SQ MO 11/01/23 11/01/23 History Allergies Allergy/AdvReac Type Severity Reaction Status Date / Time No Known Allergies Allergy Verified 11/01/23 12:05 Physical Exam Vitals: Vital Signs Temp Pulse Pulse Pulse Pulse Pulse Pulse 11/01/23 06:40 97.7 F 88 11/01/23 00:22 97.7 F 98 11/01/23 00:07 97.6 F 100 11/01/23 00:00 100 10/31/23 22:49 98 109 H 98 10/31/23 22:10 98 10/31/23 21:53 97.6 F 109 H Resp BP BP BP BP BP Pulse Ox 11/01/23 06:40 16 114/70 95 11/01/23 00:22 22 148/76 98 11/01/23 00:07 16 95/62 95 11/01/23 00:00 17 104/65 94 L 10/31/23 22:49 101/68 91/60 103/62 10/31/23 22:10 10/31/23 21:53 18 95/64 99 Intake and Output 10/31/23 11/01/23 11/01/23 22:59 06:59 14:59 Intake Total 590 Balance 590 Intake: Oral 590 Other: Voiding Method Toilet # Voids 2 Weight 90.718 kg 90.718 kg GENERAL: The patient is alert and oriented x3, not in any acute distress. Well developed, well nourished. HEENT: Pupils are round and equally reacting to light. EOMI. No scleral icterus. No conjunctival pallor. Normocephalic, atraumatic. No pharyngeal erythema. No thyromegaly. CARDIOVASCULAR: S1 and S2 present. No murmurs, rubs, or gallops. PULMONARY: Chest is clear to auscultation, no wheezing , no crackles. ABDOMEN: Soft, nontender, nondistended, normoactive bowel sounds. No palpable organomegaly. MUSCULOSKELETAL: No joint swelling or deformity. EXTREMITIES: No cyanosis, clubbing, or pedal edema. NEUROLOGICAL: Gross neurological examination did not reveal any focal deficits. SKIN: No rashes. no petechiae. Results CBC & Chem 7: 11/01/23 05:19 11/01/23 05:19 Labs: Abnormal Lab Results - Last 24 Hours (Table) 10/31/23 10/31/23 11/01/23 Range/Units 22:13 22:13 05:19 WBC 13.3 H (3.8-10.6) k/uL Neutrophils # 11.5 H (1.3-7.7) k/uL Sodium 136 L (137-145) mmol/L Chloride 110 H (98-107) mmol/L Carbon Dioxide 16 L 19 L (22-30) mmol/L BUN 32 H 28 H (9-20) mg/dL Creatinine 1.67 H (0.66-1.25) mg/dL Glucose 266 H (74-99) mg/dL Phosphorus 4.9 H (2.5-4.5) mg/dL ALT 55 H (4-49) U/L Total Protein 6.1 L (6.3-8.2) g/dL Thrombosis Risk Factor Assmnt - Choose All That Apply Any of the Below Risk Factors Present?: Yes Each Factor Represents 1 point: Age 41-60 years, Obesity (BMI >25) Other Risk Factors: No Other congenital or acquired thrombophilia - If yes, enter type in comment: No Thrombosis Risk Factor Assessment Total Risk Factor Score: 2 Thrombosis Risk Factor Assessment Level: Low Risk Assessment and Plan Assessment: Acute kidney injury secondary to decreased oral intake precipitated by medication like lisinopril Generalized weakness and fatigue secondary to above improved with hydration Left shoulder and back pain looks like musculoskeletal. However because of her risk factors like diabetes and hypertension upholstery bundler cleared the patient for discharge Hypertension Hyperlipidemia Obesity with BMI of 27.1 Plan: Continue with encouraging hydration Keep holding lisinopril I discussed with the patient we are going to monitor him for 24 hours and he agrees Also I discussed with him going to consult upholstery bundler and he agrees. Oven Stripper evaluated the patient and I discussed the case with him and he recommended to do 1 more troponin and if his negative then no further cardiac workup Labs and medication were reviewed.. Continue same treatment. Continue with symptomatic treatment. Resume home medication. Monitor labs and vitals. DVT and GI prophylaxis. Further recommendations as per clinical course of the patient PT/OT: Pending Prognosis is guarded
== END 2023-11-01 16:45 | disposition home or self-care (01) ==
LOC: EC 21:47 → 6NMEDSUR 23:15
PROVIDERS: ADMIT Internal Medicine; ATTEND Internal Medicine
DX: N17.9 Acute kidney failure, unspecified (principal); I10 Essential (primary) hypertension; E78.5 Hyperlipidemia, unspecified; E11.9 Type 2 diabetes mellitus without complications; Z90.49 Acquired absence of other specified parts of digestive tract; E86.0 Dehydration; M25.512 Pain in left shoulder; M54.50 Low back pain, unspecified; E66.9 Obesity, unspecified; Z68.27 Body mass index [BMI] 27.0-27.9, adult; Z79.899 Other long term (current) drug therapy; Z79.84 Long term (current) use of oral hypoglycemic drugs
CPT/HCPCS: 96360; 99285; 36415; 93005; 80053 ×2; 83735; 84100; 84443; 84484 ×2; 85025 ×2; 85610; 85730; 71046; G0378 ×2

== ENCOUNTER → 2023-12-24 | Outpatient (CLI) | payer BC ==
--- NOTE | 2024-01-18 07:40 | CT ---
Site ID [facility] Patient Jovani Bal F ID [id number] Age/Gender: 58Y, M Order # N/A Procedure CT soft tissue neck w con Date 12/24/2023 2:03:00 PM EXAMINATION TYPE: CT soft tissue neck w con CT DLP: 481.90 mGycm, Automated exposure control for dose reduction was used. DATE OF EXAM: 12/24/2023 7:30 PM COMPARISON: CT neck 09/17/2023. CLINICAL INDICATION: Male, 58 year old with history of palpable mass left side of neck. TECHNIQUE: Standard enhanced CT of the neck following intravenous administration of 100 cc of Isovue 300. Axial sections with coronal and sagittal reformats were obtained. FINDINGS: Brain: Visualized portions are grossly unremarkable. Orbits: Unremarkable Sinuses: Mild mucosal thickening of the left maxillary sinus. [id number] mucosal thickening of the ethmoid sinuses. The sphenoid sinuses and mastoids air cells appear clear. 1 cm likely mucous ret ention cyst within the medial aspect of the inferior right maxillary sinus. Nasal septal deviation to the left. Suprahyoid Neck: Nasopharynx is clear. Mild to moderate hypertrophy of the bilateral palatine tonsils and mild hypertrophy of the bilateral lingual tonsils redemonstrated. Oropharynx is otherwise clear. Oral cavity appears unremarkable. The retropharyngeal spaces are clear and symmetric. Epiglottis robles ears unremarkable Infrahyoid Neck: The larynx, hypopharynx, and supraglottic area are clear and symmetric. Parotid Glands: Unremarkable. Submandibular Glands: Unremarkable. Musculoskeletal: Degenerative disc disease changes of the visualized spine are present. Most pronounc ed at C5-C7 levels. Lymph nodes: Enlarged 2 bilateral submandibular lymph nodes redemonstrated. Largest on the left elisa sures up to 1.5 cm. Largest on the right measures up to 1.6 cm. These are stable when measuring with similar technique. Stable prominent left upper to mid neck lymph node along the posterior triangle me asuring up to 0.9 cm, previously 1 cm. This demonstrate central fatty hilum. The marker overlies the left sternocleidomastoid in this region. No suspicious underlying neck mass No new lymphadenopathy. Vascular structures: Visualized major arteries are patent without evidence of aneurysm. Thoracic Inlet/airway: Airway is patent. Few stable bilateral upper lung pulmonary nodules measuring 4 mm or less. Examples include a left upper lobe 3.6 pulmonary pulmonary nodule (series 3, image 4), left upper lobe 3.2 mm pulmonary nodule (series 3, image 8), right upper lung 3.1 mm pulmonary nodule (series 3, image 8) and a right upper lobe 2.1 cm pulmonary nodule (series 3, image 12). Soft tissues/Thyroid: Thyroid and remainder of the soft tissues are unremarkable. Other: none. IMPRESSION 1. Stable nonspecific 2 mildly enlarged bilateral submandibular lymph nodes. Redemonstration of mild ly prominent benign-appearing 0.9 cm left posterior triangle lymph node with normal fatty hilum at si te of palpable marker. No other abnormality identified in this region. 2. Few stable pulmonary micronodules within the bilateral upper lungs. Optional follow-up CT chest i n 12 months in a high-risk patient. No follow-up is recommended in a low risk patient.
== END | disposition home or self-care (01) ==
LOC: RADCTMAIN 12:45
PROVIDERS: ATTEND Family Medicine
DX: R91.8 Other nonspecific abnormal finding of lung field (principal)
CPT/HCPCS: 70491; Q9967